=== PATIENT | female | born 1990 | race Hispanic/Latino ===

== ENCOUNTER 2021-09-04 00:56 | Day surgery (SDC) | payer OTHER ==
[2021-09-04 01:18] VITALS: BMI 35.7
[2021-09-04] MEDS ORDERED: hydrALAZINE 20 MG/ML VIAL SLOW IVP PRN (01:36)
[2021-09-04 02:47] LABS: Bilirubin Neg (Negative); Blood, Urine Negative (Negative); Clarity Clear (Clear); Glucose, Urine (Dipstick) Normal (Negative); Ketone, Urine Negative (Negative); Leukocyte 25 (Negative); Nitrite Negative (Negative); Protein, Urine (Dipstick) 15 mg/dl (Neg-Trace); Urobilinogen Normal mg/dL (Less than 2); pH, Urine 6.5 (5.0-9.0)
[2021-09-04 02:56] LABS: Urine Culture Reflex No No
[2021-09-04 03:24] LABS: Bacteria/HPF Rare-Few HPF (None Seen); RBC/HPF 0-3 HPF (0-3); Squamous Epithelial 0-3 HPF (0-3); WBC/HPF 0-3 HPF (0-3)
== END 2021-09-04 04:02 | disposition home or self-care (01) ==
LOC: CSHLD/OP 00:56
PROVIDERS: ATTEND Family Medicine
DX: O99.891 Other specified diseases and conditions complicating pregnancy (principal); R10.2 Pelvic and perineal pain; O98.813 Other maternal infectious and parasitic diseases complicating pregnancy, third trimester; B37.3 Candidiasis of vulva and vagina; O24.415 Gestational diabetes mellitus in pregnancy, controlled by oral hypoglycemic drugs; O34.211 Maternal care for low transverse scar from previous cesarean delivery; Z3A.37 37 weeks gestation of pregnancy
CPT/HCPCS: 81001; 87086; 87480; 87510; 87660

== ENCOUNTER 2021-09-11 12:11 | Outpatient (CLI) | payer SELFPAY ==
[2021-09-12 11:54] LABS: SARS-CoV-2 PCR by NAA Not Detected (NotDetected)
== END 2021-09-11 12:12 | disposition home or self-care (01) ==
LOC: CSHLAB 12:11
PROVIDERS: ATTEND Student in an Organized Health Care Education/Training Program
DX: Z01.812 Encounter for preprocedural laboratory examination (principal); Z20.822 Contact with and (suspected) exposure to COVID-19
CPT/HCPCS: U0003; U0005

== ENCOUNTER 2021-09-11 19:16 | Inpatient (IN) | payer MEDICAID, OTHER ==
[2021-09-11] MEDS ORDERED: Bicitra 30 ML UDCUP PO PRN (19:38)
[2021-09-11] MEDS ORDERED: Promethazine HCl 25 MG/ML VIAL IM PRN ×3 (19:38→23:01)
[2021-09-11] MEDS ORDERED: hydrALAZINE 20 MG/ML VIAL SLOW IVP PRN (19:38)
[2021-09-11] MEDS ORDERED: Famotidine/PF 20 mg/2ml Vial SLOW IVP PRN (19:38)
[2021-09-11] MEDS ORDERED: Ondansetron PF 4 MG/2 ML Vial IVP PRN ×2 (19:38→23:01)
[2021-09-11] MEDS ORDERED: Carboprost 250 MCG/ML AMP IM PRN (19:41)
[2021-09-11] MEDS ORDERED: Methylergonovine 0.2 MG/ML VIAL IM PRN (19:41)
[2021-09-11] MEDS ORDERED: Misoprostol 200 MCG TAB PR PRN (19:41)
[2021-09-11] MEDS ORDERED: Diphenoxylate HCl/Atropine Tablet PO PRN (19:41)
[2021-09-11] MEDS ORDERED: Lactated Ringer's 1,000 ML IV SCH (19:45)
[2021-09-11] MEDS ORDERED: CEFAZOLIN 2 GM in Premix Bag 1 BAG IVPB SCH (19:45)
[2021-09-11] MEDS ORDERED: NS w/ Oxytocin 30 units 500 ML IV SCH (19:45)
[2021-09-11] MEDS ORDERED: Fentanyl 250 MCG/5 ML VIAL ONE (19:58)
[2021-09-11] MEDS ORDERED: ePHEDrine Sulfate 50 MG/10 ML VIAL ONE (19:58)
[2021-09-11] MEDS ORDERED: Ondansetron PF 4 MG/2 ML Vial ONE (19:58)
[2021-09-11] MEDS ORDERED: Dexamethasone 4 mg/ml Vial ONE (19:58)
[2021-09-11] MEDS ORDERED: Oxytocin 10 UNITS/ML VIAL ONE (19:58)
[2021-09-11] MEDS ORDERED: Morphine PF 10 MG/10 ML VIAL ONE (19:58)
[2021-09-11] MEDS ORDERED: PHENYLEPHRINE-NS 100 MCG/ML 10 ML SYRINGE ONE (19:58)
[2021-09-11] MEDS ORDERED: Bupivacaine 0.75% W/DEXTROSE 8.25% 2 ML AMP ONE (19:58)
[2021-09-11] MEDS ORDERED: Phenylephrine 40 MG/NS 250 ML 250 ML ONE (19:59)
[2021-09-11] MEDS ORDERED: Lidocaine 2% MPF 10 ML AMP (For Epidural Use) ONE (19:59)
[2021-09-11] MEDS ORDERED: Ketorolac Tromethamine 30 MG/ML VIAL ONE (20:00)
[2021-09-11] MEDS ORDERED: CEFAZOLIN 1 GM VIAL ONE (20:19)
[2021-09-11] MEDS ORDERED: Bicitra 30 ML UDCUP ONE (20:19)
[2021-09-11] MEDS ORDERED: Azithromycin 500 MG VIAL ONE (20:19)
[2021-09-11 20:26] VITALS: BMI 36.3
[2021-09-11 20:28] LABS: Mean Corpuscular HGB CONC 32.3 g/dL (32.0-36.0); Mean Corpuscular Hemoglobin 27.7 pg (27.0-33.0); Mean Corpuscular Volume 85.7 fl (81.6-98.3); Mean Platelet Volume 12.4 fl (7.4-10.4); Platelet Count 247 10x3/uL (150-450); RBC Distribution Width 13.8 % (11.5-14.5); Red Blood Cell (RBC) Count 4.33 10x6/uL (3.90-5.03); White Blood Cell (WBC) Count 9.9 10x3/uL (3.5-10.5)
[2021-09-11 20:50] LABS: Hep B Surf Ag Non-Reactive S/CO (NonReactive)
[2021-09-11 20:50] LABS: Syphilis Antibody Nonreactive (Nonreactive); Syphilis Antibody Index 0.04 S/CO (<1.00 Non-Reactive)
[2021-09-11 20:55] LABS: HBSAg Index 0.16 S/CO (0-0.99)
[2021-09-11 21:46] LABS: Glucose POC Confirmation 78 mg/dl (70-105)
[2021-09-11 22:13] LABS: pH (Cord, venous) 7.136 (7.250-7.350)
[2021-09-11] MEDS ORDERED: Promethazine HCl 25 MG/ML VIAL IVPB PRN (23:01)
[2021-09-11] MEDS ORDERED: Naloxone HCl 0.4 mg/ml Vial IVP PRN ×2 (23:01)
[2021-09-11] MEDS ORDERED: Ketorolac Tromethamine 30 MG/ML VIAL IVP PRN (23:01)
[2021-09-11] MEDS ORDERED: Naloxone HCl 0.4 mg/ml Vial IV PRN (23:01)
[2021-09-11] MEDS ORDERED: Hydrocerin (Eucerin) Cream 120 gm Jar TOP PRN (23:01)
[2021-09-11] MEDS ORDERED: diphenhydrAMINE 50 MG/ML VIAL IVP PRN (23:01)
[2021-09-11] MEDS ORDERED: Promethazine HCl 25 MG SUPP PR PRN (23:01)
[2021-09-11] MEDS ORDERED: Ondansetron HCl/PF 4 MG/2 ML Vial IVP PRN (23:01)
[2021-09-11] MEDS ORDERED: Communication Order-Pharmacy FS SCH (23:15)
[2021-09-12] MEDS ORDERED: diphenhydrAMINE 25 MG CAP PO PRN (00:37)
[2021-09-12] MEDS ORDERED: Bisacodyl 10 MG SUPP PR PRN (00:37)
[2021-09-12] MEDS ORDERED: Boostrix 0.5 ML (Tdap) VIAL IM ONE (00:37)
[2021-09-12] MEDS ORDERED: hydrALAZINE 20 MG/ML VIAL SLOW IVP PRN (00:37)
[2021-09-12] MEDS ORDERED: Simethicone Chewable 80 MG TAB PO PRN (00:37)
[2021-09-12] MEDS ORDERED: Lanolin Ointment 7 GM TUBE TOP PRN (00:37)
[2021-09-12] MEDS ORDERED: Measles/Mumps/Rubella 10 MCG/0.5 ML VIAL SC ONE (00:37)
[2021-09-12 06:15] LABS: Hemoglobin 10.6 g/dL (12.0-15.5); Mean Corpuscular HGB CONC 32.2 g/dL (32.0-36.0); Mean Corpuscular Volume 86.8 fl (81.6-98.3); Mean Platelet Volume 12.1 fl (7.4-10.4); Platelet Count 210 10x3/uL (150-450); RBC Distribution Width 13.7 % (11.5-14.5); Red Blood Cell (RBC) Count 3.79 10x6/uL (3.90-5.03); White Blood Cell (WBC) Count 14.6 10x3/uL (3.5-10.5)
[2021-09-12] MEDS: Docusate Calcium (SURFAK) 240 MG CAP PO SCH ×2 (08:53→20:07)
[2021-09-12] MEDS: Prenatal Vitamin 1 TAB PO SCH (08:53)
[2021-09-12] MEDS: HYDROcodone/Acetaminophen 5/325 mg Tablet PO PRN ×2 (09:58→18:00)
[2021-09-12] MEDS ORDERED: HYDROcodone/Acetaminophen 5/325 mg Tablet PO PRN (11:15)
[2021-09-12] MEDS: Ferrous Sulfate 325 MG TAB PO SCH (17:50)
[2021-09-12] MEDS ORDERED: Ibuprofen 800 MG TAB PO PRN (23:00)
[2021-09-13] MEDS: Ferrous Sulfate 325 MG TAB PO SCH ×2 (05:41→09:02)
[2021-09-13 07:51] VITALS: BP 109/59; TEMP 98
[2021-09-13] MEDS: HYDROcodone/Acetaminophen 5/325 mg Tablet PO PRN (08:02)
[2021-09-13] MEDS: Prenatal Vitamin 1 TAB PO SCH (09:04)
[2021-09-13] MEDS: Docusate Calcium (SURFAK) 240 MG CAP PO SCH (09:04)
== END 2021-09-13 12:32 | disposition home or self-care (01) | DRG 787 ==
LOC: CSHLD 19:16 → CSHPP 23:00
PROVIDERS: ADMIT Emergency Medicine; ATTEND Emergency Medicine
PROC: 10D00Z1 Extraction of Products of Conception, Low, Open Approach (ICD-10-PCS; principal; 2021-09-11)
DX: O34.211 Maternal care for low transverse scar from previous cesarean delivery (principal); O41.03X0 Oligohydramnios, third trimester, not applicable or unspecified; O99.214 Obesity complicating childbirth; O24.425 Gestational diabetes mellitus in childbirth, controlled by oral hypoglycemic drugs; Z3A.38 38 weeks gestation of pregnancy; Z37.0 Single live birth
CPT/HCPCS: 36415; 36416; 51702; 82805; 82947; 85027; 86780; 86850; 86900; 86901; 87340; J0456; J0690; J1100; J1885; J2274; J2405; J2590; J3010; J3490; J7120

== ENCOUNTER 2022-08-30 05:59 | Day surgery (SDC) | payer SELFPAY ==
[2022-08-30 06:24] VITALS: BMI 34.9
[2022-08-30] MEDS ORDERED: hydrALAZINE 20 MG/ML VIAL SLOW IVP PRN (07:42)
[2022-08-30] MEDS ORDERED: Lactated Ringer's 500 ML IV SCH (07:45)
[2022-08-30 09:26] LABS: Bilirubin Neg (Negative); Blood, Urine 25 (Negative); Clarity Clear (Clear); Glucose, Urine (Dipstick) Normal (Negative); Ketone, Urine 15 mg/dL (Negative); Leukocyte 500 (Negative); Nitrite Negative (Negative); Protein, Urine (Dipstick) 30 mg/dl (Neg-Trace); Urine Culture Reflex No No; Urobilinogen Normal mg/dL (Less than 2)
[2022-08-30 09:31] LABS: WBC/HPF 21-50 HPF (0-3)
[2022-08-30 09:32] LABS: Bacteria/HPF Rare-Few HPF (None Seen); Squamous Epithelial 0-3 HPF (0-3)
== END 2022-08-30 11:05 | disposition home or self-care (01) ==
LOC: CSHLD/OP 05:59
PROVIDERS: ATTEND Family Medicine
DX: O26.893 Other specified pregnancy related conditions, third trimester (principal); R10.11 Right upper quadrant pain; O99.213 Obesity complicating pregnancy, third trimester; Z3A.28 28 weeks gestation of pregnancy; Z79.82 Long term (current) use of aspirin; Z79.2 Long term (current) use of antibiotics; Z79.899 Other long term (current) drug therapy
CPT/HCPCS: 76705; 87086; 99284

== ENCOUNTER 2022-10-02 01:27 | Day surgery (SDC) | payer MEDICAID ==
[2022-10-02 02:10] VITALS: BMI 34.9
[2022-10-02] MEDS ORDERED: hydrALAZINE 20 MG/ML VIAL SLOW IVP PRN (02:56)
[2022-10-02] MEDS ORDERED: Acetaminophen 500 MG TAB PO SCH (03:00)
[2022-10-02] MEDS ORDERED: HYDROcodone/Acetaminophen 5/325 mg Tablet PO SCH (05:00)
== END 2022-10-02 07:25 | disposition home or self-care (01) ==
LOC: CSHLD/OP 01:27
PROVIDERS: ATTEND Student in an Organized Health Care Education/Training Program
DX: O99.891 Other specified diseases and conditions complicating pregnancy (principal); M25.552 Pain in left hip; Z3A.33 33 weeks gestation of pregnancy; O99.213 Obesity complicating pregnancy, third trimester; Z79.899 Other long term (current) drug therapy; Z98.890 Other specified postprocedural states
CPT/HCPCS: 99282

== ENCOUNTER 2022-10-05 22:48 | Inpatient (IN) | payer MEDICAID ==
[2022-10-05 23:35] VITALS: BMI 35.3
[2022-10-06] MEDS ORDERED: hydrALAZINE 20 MG/ML VIAL SLOW IVP PRN (00:15)
[2022-10-06 00:36] LABS: SARS-CoV-2 NAA Rapid Test Not Detected (NotDetected)
[2022-10-06 01:03] LABS: #Eosinphils 0.1 10x3/uL (0.0-0.5); #Monocytes 0.9 10x3/uL (0.0-1.1); #Neutrophils 10.5 10x3/uL (1.5-8.4); %Basophils 0.2 % (0.0-2.0); %Eosinophils 0.5 % (0.0-6.0); %Lymphocytes 7.6 % (18.0-47.0); %Monocytes 7.4 % (0.0-10.0); %Neutrophils 83.7 % (40.0-75.0); Hemoglobin 9.7 g/dL (12.0-15.5); Mean Corpuscular Hemoglobin 24.1 pg (27.0-33.0); Mean Corpuscular Volume 75.2 fl (81.6-98.3); Platelet Count 249 10x3/uL (150-450); RBC Distribution Width 16.4 % (11.5-14.5); Red Blood Cell (RBC) Count 4.03 10x6/uL (3.90-5.03); White Blood Cell (WBC) Count 12.5 10x3/uL (3.5-10.5)
[2022-10-06 01:11] LABS: ALT (SGPT) 36 U/L (8-55); AST (SGOT) 51 U/L (5-34); Albumin 3.6 g/dL (3.5-5.0); Alkaline Phosphatase 268 U/L (40-110); Anion Gap 16 mmol/L (10-20); BUN (Urea Nitrogen) 5 mg/dL (7.0-18.7); Bilirubin, Total 0.6 mg/dL (0.2-1.2); Calc. Creatinine Clearance 170 mL/min (70-130); Calcium 8.8 mg/dL (7.8-10.44); Carbon Dioxide 18 mmol/L (22-29); Chloride 107 mmol/L (98-107); Estimated GFR 123; Globulin 3.2 g/dL (2.4-3.5); Glucose 118 mg/dL (70-105); Potassium 3.6 mmol/L (3.5-5.1); Protein, Total 6.8 g/dL (6.0-8.3); Sodium 137 mmol/L (136-145)
[2022-10-06 02:08] LABS: Bilirubin Neg (Negative); Blood, Urine 25 (Negative); CAUTI Indications for Culture Pregnancy; Clarity Cloudy (Clear); Glucose, Urine (Dipstick) Normal (Negative); Ketone, Urine 50 mg/dL (Negative); Leukocyte 500 (Negative); Nitrite Positive (Negative); Protein, Urine (Dipstick) 30 mg/dl (Neg-Trace); Urobilinogen Normal mg/dL (Less than 2); pH, Urine 6.5 (5.0-9.0)
[2022-10-06 02:11] LABS: Urine Culture Reflex Yes Yes
[2022-10-06 02:18] LABS: Amphetamine Not Detected (NotDetected); Barbiturates Screen Not Detected (NotDetected); Benzodiazepine Screen Not Detected (NotDetected); Cocaine Metabolite Screen Not Detected (NotDetected); Methadone Not Detected (NotDetected); Methamphetamine Not Detected (NotDetected); Opiate Screen Not Detected (NotDetected); Oxycodone Screen Not Detected (NotDetected); Phencyclidine (PCP) Not Detected (NotDetected); THC/Cannabinoid Screen Not Detected (NotDetected); Tricyclic Screen Not Detected (NotDetected)
[2022-10-06 02:26] LABS: Bacteria/HPF 4+ HPF (None Seen); RBC/HPF 0-3 HPF (0-3); Squamous Epithelial 0-3 HPF (0-3); WBC/HPF 21-50 HPF (0-3)
[2022-10-06] MEDS ORDERED: Ampicillin 2 GM VIAL ONE (02:29)
[2022-10-06] MEDS ORDERED: Betamet Acet/Betamet Na Ph 30 MG/5 ML VIAL IM SCH (02:30)
[2022-10-06] MEDS ORDERED: Ondansetron PF 4 MG/2 ML Vial IVP PRN (02:33)
[2022-10-06] MEDS ORDERED: Promethazine HCl 25 MG/ML VIAL IM PRN (02:33)
[2022-10-06 02:37] LABS: FFN Internal QC Analyzer PASS (PASS); FFN Internal QC Cassette PASS (PASS); Fetal Fibronectin Negative (Negative)
[2022-10-06] MEDS: Acetaminophen 325 MG TAB PO PRN ×3 (02:46→22:44)
[2022-10-06] MEDS: ADMIXTURE FEE IVPB SCH ×3 (03:49→20:40)
[2022-10-06] MEDS: GENTAMICIN IVPB SCH ×3 (03:49→20:40)
[2022-10-06] MEDS: SODIUM CHLORIDE IVPB SCH ×3 (03:49→20:40)
[2022-10-06] MEDS: Lactated Ringer's 1,000 ML IV SCH ×3 (05:01→18:29)
[2022-10-06] MEDS: Ampicillin 2 GM in Sodium Chloride 0.9% 100 ML IVPB SCH ×4 (08:36→22:44)
[2022-10-07] MEDS ORDERED: Simethicone Chewable 80 MG TAB PO PRN (02:51)
[2022-10-07] MEDS ORDERED: Lactated Ringer's 500 ML IV SCH (03:00)
[2022-10-07] MEDS ORDERED: Piperacillin/Tazobactam 4.5 GM in Sodium Chloride 0.9% 100 ML IVPB SCH ×2 (03:00→03:45)
[2022-10-07] MEDS ORDERED: Piperacillin/Tazobactam 3.375 GM in Sodium Chloride 0.9% 100 ML IVPB SCH ×2 (03:00→04:00)
[2022-10-07] MEDS ORDERED: Polyethylene Glycol 3350 17 GM Packet PO SCH (03:30)
[2022-10-07] MEDS ORDERED: Acetaminophen 325 MG TAB PO SCH (04:00)
[2022-10-07] MEDS ORDERED: Fentanyl 100 MCG/2 ML VIAL SLOW IVP SCH (04:00)
[2022-10-07] MEDS ORDERED: Sodium Chloride 0.9% 1,000 ML IV SCH (05:30)
[2022-10-07] MEDS: Lactated Ringer's 1,000 ML IV SCH ×3 (05:36→21:00)
[2022-10-07 06:03] LABS: #Monocytes 1.2 10x3/uL (0.0-1.1); #Neutrophils 9.4 10x3/uL (1.5-8.4); %Basophils 0.1 % (0.0-2.0); %Eosinophils 0.3 % (0.0-6.0); %Lymphocytes 7.4 % (18.0-47.0); %Monocytes 10.1 % (0.0-10.0); %Neutrophils 81.4 % (40.0-75.0); Hemoglobin 8.7 g/dL (12.0-15.5); Mean Corpuscular HGB CONC 31.8 g/dL (32.0-36.0); Mean Corpuscular Hemoglobin 24.1 pg (27.0-33.0); Mean Corpuscular Volume 75.9 fl (81.6-98.3); Mean Platelet Volume 10.8 fl (7.4-10.4); Platelet Count 223 10x3/uL (150-450); RBC Distribution Width 16.9 % (11.5-14.5); Red Blood Cell (RBC) Count 3.61 10x6/uL (3.90-5.03); White Blood Cell (WBC) Count 11.6 10x3/uL (3.5-10.5)
[2022-10-07 06:06] LABS: ALT (SGPT) 25 U/L (8-55); AST (SGOT) 36 U/L (5-34); Alkaline Phosphatase 204 U/L (40-110); Anion Gap 14 mmol/L (10-20); BUN (Urea Nitrogen) Less than 4 mg/dL (7.0-18.7); Bilirubin, Total 0.9 mg/dL (0.2-1.2); CRP (Inflammatory) 14.11 mg/dL (= or < 0.5); Calc. Creatinine Clearance 173 mL/min (70-130); Calcium 8.6 mg/dL (7.8-10.44); Carbon Dioxide 18 mmol/L (22-29); Chloride 107 mmol/L (98-107); Estimated GFR 123; Globulin 3.2 g/dL (2.4-3.5); Glucose 83 mg/dL (70-105); Lipase 10 U/L (8-78); Potassium 2.8 mmol/L (3.5-5.1); Protein, Total 6.2 g/dL (6.0-8.3); Sodium 136 mmol/L (136-145)
[2022-10-07] MEDS ORDERED: Potassium Chloride 20 MEQ TAB PO SCH (08:00)
[2022-10-07] MEDS: Piperacillin/Tazobactam 3.375 GM in Sodium Chloride 0.9% 100 ML IVPB SCH ×2 (09:10→15:52)
[2022-10-07] MEDS: Polyethylene Glycol 3350 17 GM Packet PO SCH (11:33)
[2022-10-07] MEDS: Acetaminophen 325 MG TAB PO PRN (16:09)
[2022-10-08] MEDS: Piperacillin/Tazobactam 3.375 GM in Sodium Chloride 0.9% 100 ML IVPB SCH (00:26)
[2022-10-08] MEDS: Acetaminophen 325 MG TAB PO PRN ×2 (00:26→06:11)
[2022-10-08 05:19] LABS: #Eosinphils 0.1 10x3/uL (0.0-0.5); #Monocytes 1.1 10x3/uL (0.0-1.1); #Neutrophils 7.5 10x3/uL (1.5-8.4); %Basophils 0.3 % (0.0-2.0); %Eosinophils 0.6 % (0.0-6.0); %Lymphocytes 11.6 % (18.0-47.0); %Monocytes 11.1 % (0.0-10.0); %Neutrophils 75.2 % (40.0-75.0); Hemoglobin 8.5 g/dL (12.0-15.5); Mean Corpuscular HGB CONC 31.5 g/dL (32.0-36.0); Mean Corpuscular Hemoglobin 24.1 pg (27.0-33.0); Mean Corpuscular Volume 76.5 fl (81.6-98.3); Mean Platelet Volume 10.4 fl (7.4-10.4); Platelet Count 217 10x3/uL (150-450); RBC Distribution Width 17.2 % (11.5-14.5); Red Blood Cell (RBC) Count 3.53 10x6/uL (3.90-5.03)
[2022-10-08] MEDS: Lactated Ringer's 1,000 ML IV SCH ×3 (06:10→21:47)
[2022-10-08] MEDS ORDERED: Piperacillin/Tazobactam 3.375 GM in Sodium Chloride 0.9% 100 ML IVPB SCH (08:00)
[2022-10-08 12:13] LABS: ALT (SGPT) 25 U/L (8-55); AST (SGOT) 38 U/L (5-34); Alkaline Phosphatase 204 U/L (40-110); Anion Gap 14 mmol/L (10-20); BUN (Urea Nitrogen) Less than 4 mg/dL (7.0-18.7); Bilirubin, Total 0.7 mg/dL (0.2-1.2); Calc. Creatinine Clearance 160 mL/min (70-130); Calcium 8.8 mg/dL (7.8-10.44); Carbon Dioxide 14 mmol/L (22-29); Chloride 111 mmol/L (98-107); Estimated GFR 121; Globulin 3.2 g/dL (2.4-3.5); Glucose 60 mg/dL (70-105); Potassium 3.1 mmol/L (3.5-5.1); Protein, Total 6.2 g/dL (6.0-8.3); Sodium 136 mmol/L (136-145)
[2022-10-08] MEDS ORDERED: Potassium Chloride 20 MEQ TAB PO SCH (13:00)
[2022-10-08] MEDS: Polyethylene Glycol 3350 17 GM Packet PO SCH ×2 (13:02→15:47)
[2022-10-08] MEDS: cefTRIAXone\\ROCEPHIN 1 GM in Sodium Chloride 0.9% 100 ML IVPB SCH (13:25)
[2022-10-08] MEDS: HYDROcodone/Acetaminophen 5/325 mg Tablet PO PRN (15:45)
[2022-10-09 04:02] LABS: #Eosinphils 0.1 10x3/uL (0.0-0.5); #Monocytes 1.1 10x3/uL (0.0-1.1); #Neutrophils 4.9 10x3/uL (1.5-8.4); %Basophils 0.4 % (0.0-2.0); %Eosinophils 1.5 % (0.0-6.0); %Lymphocytes 16.9 % (18.0-47.0); %Monocytes 14.6 % (0.0-10.0); %Neutrophils 64.7 % (40.0-75.0); Hemoglobin 8.4 g/dL (12.0-15.5); Mean Corpuscular HGB CONC 31.5 g/dL (32.0-36.0); Mean Corpuscular Hemoglobin 23.9 pg (27.0-33.0); Mean Corpuscular Volume 76.1 fl (81.6-98.3); Platelet Count 245 10x3/uL (150-450); RBC Distribution Width 17.1 % (11.5-14.5); Red Blood Cell (RBC) Count 3.51 10x6/uL (3.90-5.03); White Blood Cell (WBC) Count 7.6 10x3/uL (3.5-10.5)
[2022-10-09 04:16] LABS: ALT (SGPT) 23 U/L (8-55); AST (SGOT) 35 U/L (5-34); Albumin 2.9 g/dL (3.5-5.0); Alkaline Phosphatase 205 U/L (40-110); Anion Gap 13 mmol/L (10-20); BUN (Urea Nitrogen) Less than 4 mg/dL (7.0-18.7); Bilirubin, Total 0.5 mg/dL (0.2-1.2); CRP (Inflammatory) 13.19 mg/dL (= or < 0.5); Calc. Creatinine Clearance 176 mL/min (70-130); Calcium 8.7 mg/dL (7.8-10.44); Carbon Dioxide 15 mmol/L (22-29); Chloride 110 mmol/L (98-107); Estimated GFR 124; Globulin 3.2 g/dL (2.4-3.5); Glucose 83 mg/dL (70-105); Protein, Total 6.1 g/dL (6.0-8.3); Sodium 135 mmol/L (136-145)
[2022-10-09] MEDS: Lactated Ringer's 1,000 ML IV SCH (05:46)
[2022-10-09] MEDS: Polyethylene Glycol 3350 17 GM Packet PO SCH (07:58)
[2022-10-09] MEDS ORDERED: Potassium Chloride 20 MEQ TAB PO SCH (08:00)
[2022-10-09 11:15] VITALS: BP 97/60; TEMP 98
[2022-10-09] MEDS: cefTRIAXone\\ROCEPHIN 1 GM in Sodium Chloride 0.9% 100 ML IVPB SCH (11:41)
[2022-10-09] MEDS: HYDROcodone/Acetaminophen 5/325 mg Tablet PO PRN (11:42)
== END 2022-10-09 16:30 | disposition home or self-care (01) | DRG 831 ==
LOC: CSHLD/OP 22:48 → CSHLD 10-06 02:58 → CSHANTE 10-06 11:45
PROVIDERS: ADMIT Student in an Organized Health Care Education/Training Program; ATTEND Student in an Organized Health Care Education/Training Program
DX: O98.813 Other maternal infectious and parasitic diseases complicating pregnancy, third trimester (principal); A41.9 Sepsis, unspecified organism; O23.03 Infections of kidney in pregnancy, third trimester; O34.211 Maternal care for low transverse scar from previous cesarean delivery; Z3A.33 33 weeks gestation of pregnancy; Z20.822 Contact with and (suspected) exposure to COVID-19; O24.410 Gestational diabetes mellitus in pregnancy, diet controlled; Z79.82 Long term (current) use of aspirin; Z79.899 Other long term (current) drug therapy; O76 Abnormality in fetal heart rate and rhythm complicating labor and delivery; D50.9 Iron deficiency anemia, unspecified; O99.013 Anemia complicating pregnancy, third trimester; E87.6 Hypokalemia; O99.283 Endocrine, nutritional and metabolic diseases complicating pregnancy, third trimester
CPT/HCPCS: 36415; 59025; 76770; 76815; 80053; 80170; 80306; 81001; 82731; 83690; 84145; 84443; 85025; 86140; 87040; 87077; 87086; 87149; 87186; 99285; J0290; J0696; J1580; J2543; J3490; J7050; J7120

== ENCOUNTER → 2022-10-28 | Day surgery (SDC) | payer MEDICAID ==
[~2022-10-28] MED LIST: Acetaminophen 500 MG TAB ONE; Acetaminophen 500 MG TAB PO SCH; Iron Sucrose Complex 500 MG in Sodium Chloride 0.9% 250 ML 250 ML IVPB SCH; diphenhydrAMINE 25 MG CAP ONE; diphenhydrAMINE 25 MG CAP PO SCH
== END ==
LOC: CSHSDC 08:46
PROVIDERS: ATTEND Family Medicine
DX: O99.019 Anemia complicating pregnancy, unspecified trimester (principal); D64.9 Anemia, unspecified
CPT/HCPCS: J1756; J7050

== ENCOUNTER 2022-11-03 16:23 | Day surgery (SDC) | payer MEDICAID, OTHER ==
[2022-11-03 16:57] VITALS: BMI 35.7
[2022-11-03] MEDS ORDERED: hydrALAZINE 20 MG/ML VIAL SLOW IVP PRN (17:55)
== END 2022-11-03 19:30 | disposition home or self-care (01) ==
LOC: CSHLD/OP 16:23
PROVIDERS: ATTEND Family Medicine
DX: O47.1 False labor at or after 37 completed weeks of gestation (principal); O24.113 Pre-existing type 2 diabetes mellitus, in pregnancy, third trimester; E11.8 Type 2 diabetes mellitus with unspecified complications; Z87.440 Personal history of urinary (tract) infections; O99.013 Anemia complicating pregnancy, third trimester; D50.9 Iron deficiency anemia, unspecified; Z79.82 Long term (current) use of aspirin; Z79.899 Other long term (current) drug therapy; Z98.891 History of uterine scar from previous surgery; Z3A.37 37 weeks gestation of pregnancy
CPT/HCPCS: 99283

== ENCOUNTER 2022-11-10 09:34 | Outpatient (CLI) | payer MEDICAID, OTHER | END 2022-11-10 09:35 | disposition home or self-care (01) | LOC: CSHLAB 09:34 | PROVIDERS: ATTEND Family Medicine | DX: Z53.9 Procedure and treatment not carried out, unspecified reason (principal) | CPT/HCPCS: 85025; 86780; 86850; 86900; 86901; 87340; U0002 ==

== ENCOUNTER 2022-11-11 05:45 | Inpatient (IN) | payer MEDICAID, OTHER ==
[2022-11-10 10:34] LABS: #Eosinphils 0.1 10x3/uL (0.0-0.5); #Monocytes 0.5 10x3/uL (0.0-1.1); #Neutrophils 6.1 10x3/uL (1.5-8.4); %Basophils 0.2 % (0.0-2.0); %Eosinophils 0.9 % (0.0-6.0); %Lymphocytes 19.7 % (18.0-47.0); %Monocytes 5.9 % (0.0-10.0); %Neutrophils 72.4 % (40.0-75.0); Hemoglobin 10.5 g/dL (12.0-15.5); Mean Corpuscular HGB CONC 31.8 g/dL (32.0-36.0); Mean Corpuscular Hemoglobin 24.6 pg (27.0-33.0); Mean Corpuscular Volume 77.5 fl (81.6-98.3); Mean Platelet Volume 10.2 fl (7.4-10.4); Platelet Count 274 10x3/uL (150-450); RBC Distribution Width 22.1 % (11.5-14.5); Red Blood Cell (RBC) Count 4.26 10x6/uL (3.90-5.03); White Blood Cell (WBC) Count 8.4 10x3/uL (3.5-10.5)
[2022-11-10 11:00] LABS: SARS-CoV-2 NAA Rapid Test Not Detected (NotDetected)
[2022-11-10 11:01] LABS: Syphilis Antibody Nonreactive (Nonreactive); Syphilis Antibody Index 0.06 S/CO (<1.00 Non-Reactive)
[2022-11-10 11:02] LABS: HBSAg Index 0.14 S/CO (0-0.99); Hep B Surf Ag Non-Reactive S/CO (NonReactive)
[2022-11-10 11:04] LABS: Macrocytosis SLIGHT = 6-15 cells (100X) (0-5/hpf); Microcytosis SLIGHT = 6-15 cells (100X) (0-5/hpf)
[2022-11-10 11:05] LABS: Large Platelets SLIGHT
[2022-11-10 11:06] LABS: Platelet Morphology Comment Appears Adequate
[2022-11-11] MEDS ORDERED: CEFAZOLIN 2 GM VIAL ONE (07:09)
[2022-11-11] MEDS ORDERED: Famotidine/PF 20 mg/2ml Vial ONE (07:10)
[2022-11-11 07:12] VITALS: BMI 35.7
[2022-11-11] MEDS ORDERED: Ondansetron PF 4 MG/2 ML Vial IVP PRN ×3 (07:15→12:21)
[2022-11-11] MEDS ORDERED: Acetaminophen 500 MG TAB PO PRN (07:15)
[2022-11-11] MEDS ORDERED: Bicitra 30 ML UDCUP PO PRN (07:15)
[2022-11-11] MEDS ORDERED: Famotidine/PF 20 mg/2ml Vial SLOW IVP PRN (07:15)
[2022-11-11] MEDS ORDERED: hydrALAZINE 20 MG/ML VIAL SLOW IVP PRN ×2 (07:15→12:21)
[2022-11-11] MEDS ORDERED: Promethazine HCl 25 MG/ML VIAL IM PRN ×3 (07:15→12:21)
[2022-11-11] MEDS ORDERED: CEFAZOLIN 2 GM in Sodium Chloride 0.9% 100 ML IVPB SCH (07:15)
[2022-11-11] MEDS ORDERED: Fentanyl 100 MCG/2 ML VIAL ONE (07:26)
[2022-11-11] MEDS ORDERED: Morphine PF 10 MG/10 ML VIAL ONE (07:26)
[2022-11-11] MEDS ORDERED: Oxytocin 10 UNITS/ML VIAL ONE (07:27)
[2022-11-11] MEDS ORDERED: Dexamethasone 4 mg/ml Vial ONE (07:27)
[2022-11-11] MEDS ORDERED: Ondansetron PF 4 MG/2 ML Vial ONE (07:27)
[2022-11-11] MEDS ORDERED: Phenylephrine 10 MG/ML VIAL ONE (07:30)
[2022-11-11] MEDS ORDERED: Ketorolac Tromethamine 30 MG/ML VIAL ONE (08:38)
[2022-11-11] MEDS ORDERED: Ondansetron HCl/PF 4 MG/2 ML Vial IVP PRN (09:40)
[2022-11-11] MEDS ORDERED: Naloxone HCl 0.4 mg/ml Vial IV PRN (09:40)
[2022-11-11] MEDS ORDERED: Fentanyl 100 MCG/2 ML VIAL SLOW IVP PRN (09:40)
[2022-11-11] MEDS ORDERED: Naloxone HCl 0.4 mg/ml Vial IVP PRN ×2 (09:40)
[2022-11-11] MEDS ORDERED: diphenhydrAMINE 50 MG/ML VIAL IVP PRN (09:40)
[2022-11-11] MEDS ORDERED: Promethazine HCl 25 MG SUPP PR PRN (09:40)
[2022-11-11] MEDS ORDERED: Meperidine HCl/PF 25 MG/ML VIAL SLOW IVP PRN (09:40)
[2022-11-11] MEDS ORDERED: Moisturizing Cream (Eucerin) 113 GM JAR TOP PRN (09:40)
[2022-11-11] MEDS ORDERED: Communication Order-Pharmacy FS SCH (09:45)
[2022-11-11] MEDS ORDERED: Ferrous Sulfate 325 MG TAB PO SCH (11:15)
[2022-11-11] MEDS ORDERED: NS w/ Oxytocin 30 units 500 ML IV SCH (12:21)
[2022-11-11] MEDS ORDERED: Boostrix 0.5 ML (Tdap) VIAL (>/=7 yrs of age) IM ONE (12:21)
[2022-11-11] MEDS ORDERED: Simethicone Chewable 80 MG TAB PO PRN (12:21)
[2022-11-11] MEDS ORDERED: diphenhydrAMINE 25 MG CAP PO PRN (12:21)
[2022-11-11] MEDS ORDERED: Lanolin Ointment 7 GM TUBE TOP PRN (12:21)
[2022-11-11] MEDS: Ketorolac Tromethamine 30 MG/ML VIAL IVP SCH ×2 (16:02→21:58)
[2022-11-11] MEDS ORDERED: HYDROcodone/Acetaminophen 5/325 mg Tablet PO PRN (21:45)
[2022-11-11] MEDS: Ferrous Sulfate 325 MG TAB PO SCH (21:57)
[2022-11-12] MEDS: Ketorolac Tromethamine 30 MG/ML VIAL IVP SCH ×2 (03:53→08:56)
[2022-11-12 05:19] LABS: Hemoglobin 7.8 g/dL (12.0-15.5); Mean Corpuscular HGB CONC 31.7 g/dL (32.0-36.0); Mean Corpuscular Hemoglobin 24.8 pg (27.0-33.0); Mean Corpuscular Volume 78.3 fl (81.6-98.3); Mean Platelet Volume 10.8 fl (7.4-10.4); Platelet Count 223 10x3/uL (150-450); RBC Distribution Width 21.3 % (11.5-14.5); Red Blood Cell (RBC) Count 3.14 10x6/uL (3.90-5.03)
[2022-11-12] MEDS: Ferrous Sulfate 325 MG TAB PO SCH ×2 (08:54→21:27)
[2022-11-12] MEDS: Prenatal Vitamin 1 TAB PO SCH (08:55)
[2022-11-12] MEDS: HYDROcodone/Acetaminophen 5/325 mg Tablet PO PRN ×3 (08:55→17:33)
[2022-11-12] MEDS: Ibuprofen 800 MG TAB PO SCH ×2 (13:59→21:27)
[2022-11-12] MEDS ORDERED: Ibuprofen 800 MG TAB PO SCH (16:00)
[2022-11-13] MEDS: Ibuprofen 800 MG TAB PO SCH ×2 (05:38→14:10)
[2022-11-13 08:04] VITALS: BP 98/59; TEMP 98
[2022-11-13] MEDS: Ferrous Sulfate 325 MG TAB PO SCH (09:35)
[2022-11-13] MEDS: Prenatal Vitamin 1 TAB PO SCH (09:36)
[2022-11-13] MEDS: HYDROcodone/Acetaminophen 5/325 mg Tablet PO PRN (14:11)
== END 2022-11-13 20:10 | disposition home or self-care (01) | DRG 787 ==
LOC: CSHLD 05:45 → CSHPP 12:07
PROVIDERS: ADMIT Family Medicine; ATTEND Family Medicine
PROC: 10D00Z1 Extraction of Products of Conception, Low, Open Approach (ICD-10-PCS; principal; 2022-11-11)
DX: O34.211 Maternal care for low transverse scar from previous cesarean delivery (principal); D62 Acute posthemorrhagic anemia; Z20.822 Contact with and (suspected) exposure to COVID-19; Z3A.38 38 weeks gestation of pregnancy; Z37.0 Single live birth; O24.420 Gestational diabetes mellitus in childbirth, diet controlled; E66.9 Obesity, unspecified; O99.214 Obesity complicating childbirth; O99.02 Anemia complicating childbirth; Z79.82 Long term (current) use of aspirin; Z79.899 Other long term (current) drug therapy; Z87.440 Personal history of urinary (tract) infections; O99.62 Diseases of the digestive system complicating childbirth; K66.0 Peritoneal adhesions (postprocedural) (postinfection)
CPT/HCPCS: 36415; 51702; 85025; 85027; 86780; 86850; 86900; 86901; 87340; J1100; J1885; J2274; J2370; J2405; J2590; J3010; U0002

== ENCOUNTER 2023-09-24 13:21 | Emergency (ER) | payer MEDICAID, OTHER, SELFPAY ==
[2023-09-24 15:14] LABS: SARS-CoV-2 NAA Rapid Test Not Detected (NotDetected)
== END 2023-09-24 16:16 | disposition home or self-care (01) ==
LOC: CSHERS 13:21
DX: B34.9 Viral infection, unspecified (principal); Z20.822 Contact with and (suspected) exposure to COVID-19
CPT/HCPCS: 87081; 87430; 99283

== ENCOUNTER 2024-10-09 13:23 | Emergency (ER) | payer OTHER, SELFPAY | END 2024-10-09 15:55 | disposition home or self-care (01) | LOC: CSHERS 13:23 | DX: B34.9 Viral infection, unspecified (principal) | CPT/HCPCS: 87081; 87428; 87430; 99283 ==